=== PATIENT | male | born 1960 ===

== ENCOUNTER 2021-07-02 07:23 | Day surgery (SDC) | payer OTHER | END 2021-07-02 22:50 | disposition home or self-care (01) | LOC: CT 07:23 | DX: R00.0 Tachycardia, unspecified (principal); I77.819 Aortic ectasia, unspecified site; E78.5 Hyperlipidemia, unspecified; E11.9 Type 2 diabetes mellitus without complications; F17.210 Nicotine dependence, cigarettes, uncomplicated | CPT/HCPCS: 75574; Q9967 ==

== ENCOUNTER 2024-02-15 15:02 | Inpatient (IN) | payer OTHER ==
[~2024-02-15] VITALS: Ht 182.9 cm; Wt 62.1 kg
[2024-02-15] MEDS ORDERED: METF500 PO (16:18)
[2024-02-15] MEDS ORDERED: THERA-D2000 UNIT PO (16:18)
[2024-02-15] MEDS ORDERED: INSULANPEN SC (16:18)
[2024-02-15] MEDS ORDERED: PIOGLITAZONE HC45 MG PO (16:19)
[2024-02-15] MEDS ORDERED: SITA100T2 PO (16:19)
[2024-02-15] MEDS ORDERED: SILD50TA PO (16:19)
[2024-02-15] MEDS ORDERED: ASPI81CH PO (16:20)
[2024-02-15 16:40] LABS: BASOPHILS ABSOLUTE AUTO 0.06 K/mm3 (0.00-0.23); BASOPHILS PERCENT AUTO 0 % (0-2); EOSINOPHILS ABSOLUTE AUTO 0.04 K/mm3 (0.00-0.68); EOSINOPHILS PERCENT AUTO 0 % (0-6); Hematocrit 35.3 % (37.0-53.0); Hemoglobin 12.2 g/dL (13.5-17.5); IMMATURE GRAN ABSOLUTE AUTO 0.08 K/mm3 (0.00-0.10); IMMATURE GRAN PERCENT AUTO 1 % (0-1); LYMPHOCYTES ABSOLUTE AUTO 1.23 K/mm3 (0.84-5.20); LYMPHOCYTES PERCENT AUTO 9 % (21-46); MONOCYTES ABSOLUTE AUTO 1.72 K/mm3 (0.16-1.47); MONOCYTES PERCENT AUTO 12 % (4-13); Mean Corpuscular HGB 30.8 pg (26.0-34.0); Mean Corpuscular HGB Conc 34.6 g/dL (31.5-36.5); Mean Corpuscular Volume 89 fL (80-100); Mean Platelet Volume 9.2 fL (9.1-12.4); NEUTROPHILS ABSOLUTE AUTO 10.86 K/mm3 (1.96-9.15); NEUTROPHILS PERCENT AUTO 78 % (41-73); Platelet Count 309 K/mm3 (150-400); RDW Coefficient Variation 11.4 % (11.7-14.2); RDW Standard Deviation 36.8 fL (35.1-46.3); Red Blood Cell Count 3.96 M/mm3 (4.30-5.90); White Blood Cell Count 13.99 K/mm3 (4.00-11.30)
[2024-02-15] MEDS ORDERED: NS 1,000 ML IV SCH ×3 (17:15→23:30)
[2024-02-15] MEDS ORDERED: Vancomycin HCL 2,000 MG in NS 520 ML IV ONE (17:15)
[2024-02-15] MEDS ORDERED: Piperacillin/Tazobactam Sod 3.375 GM in NS 100 ML IV ONE (17:15)
[2024-02-15 17:25] LABS: Albumin, Blood 2.7 g/dL (3.4-5.0); Albumin/Globulin Ratio 0.6 (0.8-1.8); Bilirubin, Total 1.3 mg/dL (0.1-1.0); Calcium, Blood 8.9 mg/dL (8.5-10.1); Creatinine, Blood 0.74 mg/dL (0.60-1.20); Globulin, Blood 4.7 g/dL (2.2-4.0); Potassium, Blood 4.5 mmol/L (3.5-5.5); Total Protein, Blood 7.4 g/dL (6.4-8.2)
[2024-02-15] MEDS ORDERED: Ondansetron HCl 2 MG / ML 2ML Vial IV PRN (19:00)
[2024-02-15] MEDS ORDERED: FLU VACC TS2024-25(6MOS UP)/PF 45 MCG/0.5 ML SYRINGE IM SCH (19:05)
[2024-02-15] MEDS ORDERED: TraMADol HCl 50 MG Tab PO PRN (19:20)
[2024-02-15] MEDS ORDERED: Acetaminophen 325 MG TABLET PO PRN (19:20)
[2024-02-15] MEDS ORDERED: Lactated Ringer's 1,000 ML IV ONE (20:00)
[2024-02-15] MEDS ORDERED: Lactobacil 2-S.Thermo-Bifido 1 1 Cap PO SCH (21:00)
[2024-02-15] MEDS ORDERED: Insulin Glargine-Yfgn 100 Unit/mL 3 ML SYR SC SCH (21:00)
[2024-02-15 22:16] VITALS: BP 121/68
--- NOTE | 2024-02-15 22:20 | NUR ---
NEW ADMIT. PATIENT ADMITTED TO ROOM 330 FROM THE ER. PATIENT ARRIVED TO ROOM VIA GURNEY AND 1P TRANSPORT. PATIENT ABLE TO STAND PIVOT FROM GURNEY TO BED. PATIENT ARRIVED WITH AT SIDE AND 1 PERSONAL BELONGINGS BAG- ENCOURAGED TO TAKE PATIENTS PERSONAL BELONGINGS HOME. THIS RN TO ASSUME PATIENT CARE.
[2024-02-16] VITALS (12 sets, daily range): BP systolic 83–126; BP diastolic 41–82
[2024-02-16] MEDS ORDERED: Insulin Human Lispro 100 Units/ML 3ML Syringe SC SCH
[2024-02-16] MEDS ORDERED: CefTRIAXone Sodium 2,000 MG in NS 100 ML IV SCH
--- NOTE | 2024-02-16 04:08 | NUR ---
SHIFT SUMMARY. PATIENT COME TO HOSPITAL FOLLOWING A VISIT TO [facility]. PATIENT ADMITTED TO FLOOR WITH LEFT FOOT CELLULITIS-PICTURES OBTAINED AND PUT IN CHART, OUTLINE OF REDNESS TO LEFT FOOT TRACED WITH SKIN MARKER TO MONITOR. PATIENT IS PLEASANT AND COOPERATIVE WITH CARE. PATIENT IS A&OX4. CALLS APPROPRIATELY AND IS ABLE TO MAKE HIS NEEDS KNOWN. PATIENT HAS IV FLUIDS RUNNING PER ORDERS. PATIENT REPORTS PAIN TO LEFT FOOT BUT DENIES ANY NEED FOR PHARMACOLOGICAL INTERVENTION. PATIENT IS Q6 HOUR BLOOD SUGARS AND NPO. BED IS LOCKED IN THE LOWEST POSITION WITH CALL LIGHT IN REACH. CARE IS ONGOING.
[2024-02-16 05:30] LABS: BASOPHILS ABSOLUTE AUTO 0.04 K/mm3 (0.00-0.23); BASOPHILS PERCENT AUTO 0 % (0-2); EOSINOPHILS PERCENT AUTO 2 % (0-6); Hematocrit 29.7 % (37.0-53.0); Hemoglobin 10.3 g/dL (13.5-17.5); IMMATURE GRAN ABSOLUTE AUTO 0.08 K/mm3 (0.00-0.10); IMMATURE GRAN PERCENT AUTO 1 % (0-1); LYMPHOCYTES ABSOLUTE AUTO 1.83 K/mm3 (0.84-5.20); LYMPHOCYTES PERCENT AUTO 15 % (21-46); MONOCYTES ABSOLUTE AUTO 1.42 K/mm3 (0.16-1.47); MONOCYTES PERCENT AUTO 12 % (4-13); Mean Corpuscular HGB 30.4 pg (26.0-34.0); Mean Corpuscular HGB Conc 34.7 g/dL (31.5-36.5); Mean Corpuscular Volume 88 fL (80-100); Mean Platelet Volume 9.2 fL (9.1-12.4); NEUTROPHILS ABSOLUTE AUTO 8.54 K/mm3 (1.96-9.15); NEUTROPHILS PERCENT AUTO 71 % (41-73); Platelet Count 304 K/mm3 (150-400); RDW Coefficient Variation 11.5 % (11.7-14.2); RDW Standard Deviation 36.8 fL (35.1-46.3); Red Blood Cell Count 3.39 M/mm3 (4.30-5.90); White Blood Cell Count 12.11 K/mm3 (4.00-11.30)
[2024-02-16 05:45] LABS: International Normalized Ratio 1.07; Prothrombin Time Results 11.4 Sec (9.7-11.5)
[2024-02-16 05:51] LABS: Bun/Creatinine Ratio 15.5 (12.0-20.0); Calcium, Blood 8.2 mg/dL (8.5-10.1); Creatinine, Blood 0.77 mg/dL (0.60-1.20); Potassium, Blood 3.8 mmol/L (3.5-5.5)
[2024-02-16] MEDS ORDERED: Vancomycin HCL 1,000 MG in NS 250 ML IV SCH (07:00)
[2024-02-16] MEDS ORDERED: Enoxaparin 40 MG/0.4 ML SYR SC SCH (09:00)
--- NOTE | 2024-02-16 10:06 | NUR ---
DR DUKE ROUNDED TODAY, PATIENT TO STAY NPO, POSSIBLE I&D TODAY, HELPFUL AT BEDSIDE, PATIENT COOPERATIVE TO CARE
[2024-02-16] MEDS ORDERED: Lactated Ringer's 1,000 ML IV SCH (14:00)
[2024-02-16] MEDS ORDERED: Bupivacaine 0.5% HCl 5 MG/ML 30MLVIAL ONE (14:18)
[2024-02-16] MEDS ORDERED: Lidocaine HCl 1% 30 ML SDV ONE (14:18)
--- NOTE | 2024-02-16 14:18 | NUR ---
PATIENT TO DAY SURGERY FOR I&D VIA W/C
[2024-02-16] MEDS ORDERED: propofoL 20 ML IV ONE (14:49)
[2024-02-16] MEDS ORDERED: FentaNYL Citrate 50 MCG/ML 2 ML Injection ONE (14:49)
[2024-02-16] MEDS ORDERED: HYDROmorphone HCl/Pf 1MG SYR IV PRN (14:55)
[2024-02-16] MEDS ORDERED: Labetalol HCL 5 MG/ML 4ML Injection (Single Dose) IV PRN (14:55)
[2024-02-16] MEDS ORDERED: Metoclopramide HCl 5MG / ML 2ML Vial IV PRN (15:00)
[2024-02-16] MEDS ORDERED: FentaNYL Citrate 50 MCG/ML 2 ML Injection IV PRN ×3 (15:00)
[2024-02-16] MEDS ORDERED: Ondansetron HCl 2 MG / ML 2ML Vial IV PRN (15:00)
[2024-02-16] MEDS ORDERED: Dexamethasone Sod Phos 10 MG/ML 1ML VIAL ONE (15:19)
[2024-02-16] MEDS ORDERED: Ondansetron HCl 2 MG / ML 2ML Vial ONE (15:19)
--- NOTE | 2024-02-16 15:31 | NUR ---
Personal ring placed in pt's chart
--- NOTE | 2024-02-16 17:17 | NUR ---
ALERT AND ORIENTED X4, AT BEDSIDE HELPFUL, BACK FROM DAY SURGERY, LEFT FOOT WRAPPED, TOLERATING FOOD NOW, CLEARLY MAKES NEEDS KNOWN, CALL LIGHT WITH IN REACH, WILL RELAY TO PM RN
[2024-02-16] MEDS ORDERED: Insulin Glargine-Yfgn 100 Unit/mL 3 ML SYR SC ONE (21:30)
[2024-02-17 03:36] VITALS: BP 138/79
--- NOTE | 2024-02-17 05:57 | NUR ---
SHIFT SUMMARY: Pt is admitted for left foot cellulitis and is a full code. Is alert and able to make needs known. ADLs have been SBA to 1 depending on how he is feeling. States that he has some low level pain 2/10 and declines anything for pain when offered.
[2024-02-17 06:38] LABS: BASOPHILS ABSOLUTE AUTO 0.03 K/mm3 (0.00-0.23); BASOPHILS PERCENT AUTO 0 % (0-2); EOSINOPHILS PERCENT AUTO 0 % (0-6); Hematocrit 33.3 % (37.0-53.0); Hemoglobin 11.4 g/dL (13.5-17.5); IMMATURE GRAN ABSOLUTE AUTO 0.13 K/mm3 (0.00-0.10); IMMATURE GRAN PERCENT AUTO 1 % (0-1); LYMPHOCYTES PERCENT AUTO 5 % (21-46); MONOCYTES ABSOLUTE AUTO 0.92 K/mm3 (0.16-1.47); MONOCYTES PERCENT AUTO 7 % (4-13); Mean Corpuscular HGB 30.1 pg (26.0-34.0); Mean Corpuscular HGB Conc 34.2 g/dL (31.5-36.5); Mean Corpuscular Volume 88 fL (80-100); Mean Platelet Volume 9.5 fL (9.1-12.4); NEUTROPHILS ABSOLUTE AUTO 11.37 K/mm3 (1.96-9.15); NEUTROPHILS PERCENT AUTO 87 % (41-73); Platelet Count 365 K/mm3 (150-400); RDW Coefficient Variation 11.7 % (11.7-14.2); RDW Standard Deviation 37.5 fL (35.1-46.3); Red Blood Cell Count 3.79 M/mm3 (4.30-5.90); White Blood Cell Count 13.15 K/mm3 (4.00-11.30)
[2024-02-17 06:59] LABS: Vancomycin, Trough 15.7 ug/mL (5.0-10.0)
[2024-02-17 07:03] LABS: Bun/Creatinine Ratio 18.8 (12.0-20.0); Calcium, Blood 8.9 mg/dL (8.5-10.1); Creatinine, Blood 0.9 mg/dL (0.60-1.20); Potassium, Blood 4.3 mmol/L (3.5-5.5)
[2024-02-17 07:23] VITALS: BP 159/77
[2024-02-17] MEDS ORDERED: Insulin Human Lispro 100 Units/ML 3ML Syringe SC ONE (07:30)
[2024-02-17] MEDS ORDERED: Insulin Human Lispro 100 Units/ML 3ML Syringe SC SCH ×2 (07:30→11:30)
[2024-02-17] MEDS ORDERED: Vancomycin HCL 1,000 MG in NS 250 ML IV SCH (08:00)
--- NOTE | 2024-02-17 10:20 | NUR ---
PATIENT TO MRI NOW, AT BEDSIDE, [place] GIVEN THIS AM, PATIENT SHOWERED, CLEARLY MAKES NEEDS KNOWN, CALL LIGHT WITH IN REACH
[2024-02-17] MEDS ORDERED: Piperacillin/Tazobactam Sod 3.375 GM in NS 100 ML IV SCH (12:35)
--- NOTE | 2024-02-17 13:49 | NUR ---
PATIENT BACK FROM MRI, AT BEDSIDE, ATE LUNCH, COVERED BLOOD SUGAR, DENEID NEED FOR PAIN MEDICATIONS, CALL LIGHT WITH IN REACH
[2024-02-17 15:04] VITALS: BP 150/75
[2024-02-17] MEDS ORDERED: Clindamycin 900mg in D5W 50ML 50 ML IV SCH (16:00)
[2024-02-17] MEDS ORDERED: NS 250 ML IV PRN (16:05)
--- NOTE | 2024-02-17 18:29 | NUR ---
PT CLAIMED THAT [employer] [employer]ING WENT DOWN WITH HIM TO IMAGING. pT CLAIMS RING WAS THEN ATTACHED TO PAPERWORK BY IMAGING STAFF THEN NEVER RETURNED TO PT. PT IS CURRENTLY NOT IN POSSESSION OF RING AND STATES IT IS IN IMAGING. SUYAPA CARR CONTACTED IMAGING AND IMAGING IS NOT IN POSESSION OF RING. PT NOTIFIED OF THIS UPDATE.
--- NOTE | 2024-02-17 18:32 | NUR ---
PT FOUND SAID RING, PT CONTENT.
--- NOTE | 2024-02-17 18:37 | NUR ---
NO ACUTE CHANGES, CHANGES MADE TO ANTIBIOTICS, DENIED NEED FOR PAIN MEDICATIONS THROUGH OUT THE DAY, SHOWERED, LEFT FOOT CDI, ALERT AND ORIENTED X4, CALL LIGHT WITH IN REACH, WILL RELAY TO PM RN
[2024-02-17 19:24] VITALS: BP 153/79
[2024-02-17] MEDS ORDERED: Insulin Glargine-Yfgn 100 Unit/mL 3 ML SYR SC SCH ×2 (21:00)
[2024-02-18 05:43] VITALS: BP 165/89
--- NOTE | 2024-02-18 06:21 | NUR ---
SHIFT SUMMARY: Pt is admitted for left foot cellulitis and is a full code. Is alert and able to make needs known. ADLs have been SBA. States that he has some low level pain 3/10 and declines anything for pain when offered. Left foot dressing is CDI.
[2024-02-18 06:36] LABS: BASOPHILS ABSOLUTE AUTO 0.04 K/mm3 (0.00-0.23); BASOPHILS PERCENT AUTO 0 % (0-2); EOSINOPHILS ABSOLUTE AUTO 0.28 K/mm3 (0.00-0.68); EOSINOPHILS PERCENT AUTO 3 % (0-6); Hematocrit 31.1 % (37.0-53.0); Hemoglobin 10.8 g/dL (13.5-17.5); IMMATURE GRAN ABSOLUTE AUTO 0.07 K/mm3 (0.00-0.10); IMMATURE GRAN PERCENT AUTO 1 % (0-1); LYMPHOCYTES PERCENT AUTO 16 % (21-46); MONOCYTES ABSOLUTE AUTO 0.77 K/mm3 (0.16-1.47); MONOCYTES PERCENT AUTO 7 % (4-13); Mean Corpuscular HGB 30.9 pg (26.0-34.0); Mean Corpuscular HGB Conc 34.7 g/dL (31.5-36.5); Mean Corpuscular Volume 89 fL (80-100); Mean Platelet Volume 9.4 fL (9.1-12.4); NEUTROPHILS ABSOLUTE AUTO 8.04 K/mm3 (1.96-9.15); NEUTROPHILS PERCENT AUTO 74 % (41-73); Platelet Count 403 K/mm3 (150-400); RDW Coefficient Variation 11.9 % (11.7-14.2); RDW Standard Deviation 38.1 fL (35.1-46.3)
[2024-02-18 06:57] LABS: Bun/Creatinine Ratio 19.5 (12.0-20.0); Calcium, Blood 8.9 mg/dL (8.5-10.1); Creatinine, Blood 0.87 mg/dL (0.60-1.20); Potassium, Blood 3.9 mmol/L (3.5-5.5)
[2024-02-18 07:49] VITALS: BP 144/81
[2024-02-18] MEDS ORDERED: Arginine/Glutamine/Calcium Hmb 1 Packet PO SCH (09:00)
--- NOTE | 2024-02-18 09:00 | NUR ---
pt laying in bed watching tv, a/ox3, pleasant and cooperative with care, follows commands, denies pain at this time, lungs are clear t/o, resp even and unlabored, no cough noted, on r/a, hrr, no edema noted, to r ft, left ft has hammad dressing in place, toes do look a bit swollen, good cap refill, piv to rfa site is clear and patent, btx4, reports reg bm's and voids without diff, bryan, states he gets up to the bathroom without diff, kip, call light in reach.
[2024-02-18] MEDS ORDERED: Insulin Human Lispro 100 Units/ML 3ML Syringe SC SCH (11:30)
[2024-02-18 15:42] VITALS: BP 162/95
[2024-02-18 20:24] VITALS: BP 177/92
--- NOTE | 2024-02-19 02:13 | NUR ---
REMOVED PT LEFT UPPER POWERGLIDE AT 0205 PER CHARGE NURSE, SITE BECAME INFILTRATED. PT WAS RECIEVING CEFLAZOLIN DURING TIME. SWITCHED TO RIGHT UPPER POWERGLIDE TO FINISH MEDICATION AND CONTINUE NS INFUSION AT 20/HOUR. PT TOLERATED PROCEEDURE WELL.
[2024-02-19 05:49] VITALS: BP 152/77
[2024-02-19 06:12] LABS: BASOPHILS ABSOLUTE AUTO 0.05 K/mm3 (0.00-0.23); BASOPHILS PERCENT AUTO 0 % (0-2); EOSINOPHILS ABSOLUTE AUTO 0.27 K/mm3 (0.00-0.68); EOSINOPHILS PERCENT AUTO 2 % (0-6); Hematocrit 30.5 % (37.0-53.0); Hemoglobin 10.7 g/dL (13.5-17.5); IMMATURE GRAN ABSOLUTE AUTO 0.05 K/mm3 (0.00-0.10); IMMATURE GRAN PERCENT AUTO 0 % (0-1); LYMPHOCYTES PERCENT AUTO 14 % (21-46); MONOCYTES ABSOLUTE AUTO 0.95 K/mm3 (0.16-1.47); MONOCYTES PERCENT AUTO 9 % (4-13); Mean Corpuscular HGB 30.3 pg (26.0-34.0); Mean Corpuscular HGB Conc 35.1 g/dL (31.5-36.5); Mean Corpuscular Volume 86 fL (80-100); Mean Platelet Volume 9.4 fL (9.1-12.4); NEUTROPHILS ABSOLUTE AUTO 8.32 K/mm3 (1.96-9.15); NEUTROPHILS PERCENT AUTO 74 % (41-73); Platelet Count 433 K/mm3 (150-400); RDW Coefficient Variation 11.8 % (11.7-14.2); RDW Standard Deviation 37.3 fL (35.1-46.3); Red Blood Cell Count 3.53 M/mm3 (4.30-5.90); White Blood Cell Count 11.24 K/mm3 (4.00-11.30)
--- NOTE | 2024-02-19 06:24 | NUR ---
SHIFT SUMMARY PT ALERT AND ORIENTED TIMES 4. PT PT ABLE TO MAKE NEEDS KNOWN AND RECEPTIVE TO CARE. PT APPEARED TO SLEEP THROUGH THE NIGHT. PT ABLE TO AMBULATE TO BATHROOM INDEPENDENTLY. VISITED LATER IN THE NIGHT. PT HAD VANCO, CLINDAMYCIN, AND ZOSYN INFUSED DURING THE NIGHT. PT TOLERATED WELL. BED IN LOW POSITION, CALL LIGHT WITHIN REACH, RAILS TIMES 2.
[2024-02-19 06:36] LABS: Bun/Creatinine Ratio 22.9 (12.0-20.0); Calcium, Blood 9.1 mg/dL (8.5-10.1); Creatinine, Blood 0.88 mg/dL (0.60-1.20)
[2024-02-19 07:44] VITALS: BP 133/63
[2024-02-19] MEDS ORDERED: Ampicillin Sod 2,000 MG in NS 100 ML IV SCH (08:00)
[2024-02-19] MEDS ORDERED: Acetaminophen650 M1 PO (12:36)
[2024-02-19] MEDS ORDERED: PROBIOTIC1 EA14 PO (12:37)
[2024-02-19] MEDS ORDERED: AMOCLA875 PO (12:37)
[2024-02-19] MEDS ORDERED: JUVEN PACKET1 EAC3 PO (12:39)
--- NOTE | 2024-02-19 13:23 | NUR ---
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 THIS MORNING PT WAS WALKING TO THE BATHROOM USING FURNITURE SUPPORT. I GAVE HIM A SURGICAL SHOE BUT HE REPORTED THAT THE DOCTORS TOLD HIM IT'S OK TO PUT WEIGHT ON HIS FOOT AND NOT DO PARTIAL WEIGHT BEARING. HE ACCEPTED THE SURGICAL SHOE AND WORE IT. HE SAID HE HAS NOT BEEN HAVING PAIN TO HIS FOOT. DRESSING C,D,I. LEFT UNDISTURBED. HE REPORTS THAT HE HAS SENSATION TO HIS TOES. TOES WARM, ONE BLACK TOE PRESENT. MR SCHUMACHER LEFT AFTER DISCHARGE INSTRUCTIONS AND PIV REMOVED AT 1315HRS. HE DENIED ANY NEW QUESTIONS OR CONCERNS PRIOR TO DISCHARGE.
== END 2024-02-19 13:16 | disposition home or self-care (01) | DRG 854 ==
LOC: ER 15:02 → ERHOLD 19:34 → MEDS 19:34 → ENPENDDIS 02-19 11:41 → MEDS 02-19 13:16
PROVIDERS: Nurse Practitioner Acute Care; Podiatrist; Student in an Organized Health Care Education/Training Program; ADMIT Internal Medicine
PROC: 3E03329 Introduction of Other Anti-infective into Peripheral Vein, Percutaneous Approach (ICD-10-PCS; 2024-02-15)
PROC: 0JBR0ZZ Excision of Left Foot Subcutaneous Tissue and Fascia, Open Approach (ICD-10-PCS; principal; 2024-02-16 15:00)
DX: A41.9 Sepsis, unspecified organism (principal); E87.1 Hypo-osmolality and hyponatremia; L02.612 Cutaneous abscess of left foot; L03.116 Cellulitis of left lower limb; E11.621 Type 2 diabetes mellitus with foot ulcer; L97.523 Non-pressure chronic ulcer of other part of left foot with necrosis of muscle; E11.9 Type 2 diabetes mellitus without complications; E78.5 Hyperlipidemia, unspecified; M20.41 Other hammer toe(s) (acquired), right foot; F17.210 Nicotine dependence, cigarettes, uncomplicated; Z79.84 Long term (current) use of oral hypoglycemic drugs; Z79.4 Long term (current) use of insulin; Z79.899 Other long term (current) drug therapy; E11.51 Type 2 diabetes mellitus with diabetic peripheral angiopathy without gangrene
CPT/HCPCS: 36415; 73630; 73720; 80048; 80053; 80202; 82947; 83036; 83605; 85025; 85610; 85651; 86140; 87040; 87070; 87077; 87147; 87186; 87205; 93005; 93010; 93926; 94760; 96365; 97161; 99284-25; A9270; A9579; J0290; J0696; J1100; J1650; J1815; J2405; J2543; J2704; J3010; J3370; J7030; J7040; J7050; J7120

== ENCOUNTER 2024-02-29 12:50 | Day surgery (SDC) | payer OTHER ==
[2024-02-29] VITALS (7 sets, daily range): BP systolic 78–129; BP diastolic 53–89
[~2024-02-29] VITALS: Ht 182.9 cm; Wt 60.8 kg
[~2024-02-29 12:50] MED LIST: AMOCLA875 PO; ASPI81CH PO; Acetaminophen650 M1 PO; INSULANPEN SC; JUVEN PACKET1 EAC3 PO; METF500 PO; PIOGLITAZONE HC45 MG PO; PROBIOTIC1 EA14 PO; SILD50TA PO; SITA100T2 PO; THERA-D2000 UNIT PO
[2024-02-29] MEDS ORDERED: Lactated Ringer's 1,000 ML IV SCH (13:05)
[2024-02-29] MEDS ORDERED: CeFAZolin Sodium 2,000 MG in NS 100 ML IV SCH (13:15)
[2024-02-29] MEDS ORDERED: propofoL 20 ML IV ONE (15:11)
[2024-02-29] MEDS ORDERED: Bupivacaine 0.5% HCl 5 MG/ML 30MLVIAL ONE (15:26)
[2024-02-29] MEDS ORDERED: Lidocaine HCl 1% 30 ML SDV ONE ×2 (15:26→15:28)
[2024-02-29] MEDS ORDERED: Ondansetron HCl 2 MG / ML 2ML Vial ONE (16:17)
== END 2024-02-29 23:00 | disposition home or self-care (01) ==
LOC: ORSCMMR 12:50 → ORD 16:15 → ORSCMMR 16:15
PROVIDERS: Orthopaedic Surgery
PROC: 0Y6W0Z0 Detachment at Left 4th Toe, Complete, Open Approach (ICD-10-PCS; principal; 2024-02-29 15:30)
DX: L08.9 Local infection of the skin and subcutaneous tissue, unspecified (principal); E11.52 Type 2 diabetes mellitus with diabetic peripheral angiopathy with gangrene; I96 Gangrene, not elsewhere classified; Z79.4 Long term (current) use of insulin; Z79.84 Long term (current) use of oral hypoglycemic drugs; E78.5 Hyperlipidemia, unspecified; I10 Essential (primary) hypertension; F17.210 Nicotine dependence, cigarettes, uncomplicated; Z79.899 Other long term (current) drug therapy
CPT/HCPCS: 82947; 88305; 88311; J0690; J2405; J2704; J7120